=== PATIENT | male | born 1975 | race Hispanic/Latino ===

== ENCOUNTER 2022-02-28 12:00 | Emergency (ER) | payer OTHER ==
[~2022-02-28] VITALS: Ht 172.7 cm; Wt 108.9 kg
[2022-02-28] MEDS ORDERED: ACETAMINOPHEN 500 MG TABLET PO ONE (13:00)
[2022-02-28] MEDS ORDERED: NAPR-1180 PO (13:51)
[2022-02-28 14:05] VITALS: BP 121/76
== END 2022-02-28 14:04 | disposition home or self-care (01) ==
LOC: EDH 12:00
DX: S00.03XA Contusion of scalp, initial encounter (principal); S40.012A Contusion of left shoulder, initial encounter; F07.81 Postconcussional syndrome; E11.9 Type 2 diabetes mellitus without complications; Z90.89 Acquired absence of other organs; W01.0XXA Fall on same level from slipping, tripping and stumbling without subsequent striking against object, initial encounter; Y93.89 Activity, other specified; Y92.89 Other specified places as the place of occurrence of the external cause; Y99.8 Other external cause status
CPT/HCPCS: 70450; 73030